=== PATIENT | male | born 1950 | race Caucasian/White ===

== ENCOUNTER → 2017-07-16 | Outpatient (CLI) | payer OTHER ==
--- NOTE | ~2017-07-16 | P ---
[facility] [place] [address] PROCEDURE REPORT Name: TRICIA RESTREPO Room #: REG [facility]#: [id number] Admission: 07/16/17 Attend Phys: Emiliano Montoya MD Discharge: Date of : 54 Report #: [id number] THIS REPORT FOR: //name// CC: JACQUELIN MOCK MD [facility] physician/PCP Emiliano Watts MD BRIEF HISTORY: The patient is a 67-year-old male who recently has had a prolonged episode of complicated diverticulitis. He has had a previous segmental resection, but again had a complicated episode. CT raised the question of a mass lesion in the region of diverticulitis in the sigmoid colon. PREOPERATIVE DIAGNOSIS: Abnormal CT of the colon, questionably possible colon mass and diverticulitis. POSTOPERATIVE DIAGNOSES: 1. Focal diverticulitis, 25 cm from the anal verge. 2. Moderately severe diverticulosis of the sigmoid colon. MEDICATIONS: Deep sedation with propofol per anesthesia. SPECIMEN: None. ESTIMATED BLOOD LOSS: None. PROCEDURE: Colonoscopy to the cecum and terminal ileum. FINDINGS: Prior to propofol sedation, the procedure of colonoscopy discussed with the patient as well as potential risks, benefits, and complications. He indicates he understands and desires to proceed. With the patient in left lateral decubitus position, digital examination was completed, which revealed no abnormalities. Subsequently, the [facility] video colonoscope was introduced in the rectum, advanced under direct vision to the cecum. Done with minimal difficulty. The cecum was identified by the ileocecal valve and the appendiceal orifice. I was able to visualize the distal segment of the terminal ileum, which was inspected and noted to be unremarkable. At that point, the scope was slowly withdrawn and careful circumferential views obtained including retroflexing the scope in the ascending colon. Upon slow withdrawal of the scope, the prep was noted to be good. The mucosa was within normal limits, normal vascular pattern, normal light reflex. No neoplastic lesions were seen any time during this examination. As we withdrew the scope, the proximal colonic mucosa was normal. As we withdrew the scope in the left colon and in particular the sigmoid colon, he was noted to have diverticular disease, most notable in the distal sigmoid, which was judged to be moderate in [address] [address] PROCEDURE REPORT Name: TRICIA RESTREPO Room #: REG [facility] Randy.#: [id number] Admission: 07/16/17 Attend Phys: Emiliano Montoya MD Discharge: Date of : 54 Report #: [id number] severity. There was one area of focal diverticulitis. A single diverticulum was seen with purulent material in the mouth of the diverticulum. Interestingly, the surrounding mucosa was completely normal and there was no erythema, edema, or friability. These findings were felt to be consistent with resolving diverticulitis. No other changes of diverticulitis were seen. Also, CT suggested a mass lesion and there was no endoscopic evidence of a mass lesion. The scope was withdrawn into the rectum and examination of the rectum on end view as well as retroflexed views did not reveal any additional findings. Scope was withdrawn. The patient tolerated the procedure well. CONDITION OF THE PATIENT UPON DISCHARGE: Following procedure, the patient drowsy and arousal, he will be discharged home when fully ambulatory. INSTRUCTIONS TO THE PATIENT AND FAMILY AT THE TIME OF DISCHARGE: No neoplastic lesions were seen. He does have the diverticular disease and a focal area of diverticulitis. A mass lesion was not seen. The patient continuing on IV antibiotics. I would agree with continuing antibiotics until his surgery has been completed. I do not see evidence of neoplastic disease on today's exam. I would recommend a followup colon exam in 10 years for screening for colorectal cancer. He will follow up with Dr. Mock and Dr. Breezy Watts and see me on an as needed basis. Last colonoscopy was almost 6 years ago. Withdrawal time from the cecum was 12 minutes and 41 seconds. <ELECTRONICALLY SIGNED> By: Emiliano Montoya MD 07/16/17 [id number] Emiliano Montoya MD /nt
== END | disposition home or self-care (01) ==
LOC: GI 09:59
DX: K57.92 Diverticulitis of intestine, part unspecified, without perforation or abscess without bleeding (principal); K57.30 Diverticulosis of large intestine without perforation or abscess without bleeding